=== PATIENT | female | born 1960 | race Caucasian/White ===

== ENCOUNTER 2021-04-26 11:51 | Emergency (ER) | payer BC ==
[2021-04-26 13:11] LABS: Absolute Lymphocytes (CBC) 1.3 K/uL (0.7-4.9); Hematocrit 44.8 % (36.0-45.0); Lymphocytes % 17.9 % (15.3-44.8); MPV 8.4 fL (7.6-11.3)
[2021-04-26] MEDS ORDERED: ONDANSETRON 4 MG/2 ML VIAL ONE (13:14)
[2021-04-26] MEDS ORDERED: NA CHLORIDE 0.9% 1,000 ML ONE (13:14)
[2021-04-26 13:28] LABS: Albumin 3.7 g/dL (3.4-5.0); Bilirubin Direct 0.1 mg/dL (0-0.2); Bilirubin Total 0.4 mg/dL (0.2-1.0); Potassium 3.9 mmol/L (3.5-5.1); Protein, Total 8.5 g/dL (6.4-8.2)
--- NOTE | 2021-04-26 14:29 | RAD REPORT ---
EXAM DESCRIPTION: CT - Abdomen Pelvis W Contrast - 04/26/2021 2:08 pm CLINICAL HISTORY: vomiting, diarrhea COMPARISON: No comparisons TECHNIQUE: Biphasic, helical CT imaging of the abdomen and pelvis was performed following 100 ml non -ionic IV contrast. No oral contrast administered. All CT scans are performed using dose optimization technique as appropriate and may include automated exposure control or mA/KV adjustment according to patient size. FINDINGS: No suspicious findings in the lung bases. Liver and spleen show no suspicious finding. No gallbladder or biliary tree abnormality. At the inter face with the third portion duodenum in the uncinate process there is approximately 15 mm rounded are a of heterogeneous tissue isodense to slightly hypodense relative to the pancreatic parenchyma. This could be a true pancreatic mass or possibly duodenal diverticulum. Origin cannot be clearly distingui shed. Follow-up outpatient contrast-enhanced MRI pancreatic protocol study would be recommended. No p erinephric stranding or edema. No other evidence for a pancreatic abnormality. Symmetric renal function is seen with no hydronephrosis or suspicious renal mass. Incidental note mad e of left-sided parapelvic cysts. No pyelonephritis or acute parenchymal process. No bladder abnormal ities. No adrenal abnormalities. Uterus and atrophic ovaries show no suspicious findings. No dilated bowel loops or bowel wall thickening. No free air, free fluid or inflammatory stranding. No hernia, mass or bulky lymphadenopathy. No suspicious bony findings. IMPRESSION: Contrast enhanced CT abdomen and pelvis showing no acute or emergent finding. Small mass at the pancreatic uncinate process -duodenum interface identifiable in could be true pancr eatic mass or duodenal diverticulum. A follow-up outpatient contrast MRI pancreatic protocol would be recommended.
[2021-04-26 14:33] LABS: SARS-COV-2 RT PCR POSITIVE (NEGATIVE)
[2021-04-26] MEDS ORDERED: DIAZEPAM 10 MG/2 ML INJ SYRINGE ONE (15:45)
--- NOTE | 2021-04-26 16:48 | RAD REPORT ---
EXAM DESCRIPTION: CT - Head Brain Wo Cont - 04/26/2021 4:32 pm CLINICAL HISTORY: DIZZINESS COMPARISON: Abdomen Pelvis W Contrast dated 04/26/2021 TECHNIQUE: Axial 5 mm thick images of the head were obtained without IV contrast. All CT scans are performed using dose optimization technique as appropriate and may include automated exposure control or mA/KV adjustment according to patient size. FINDINGS: No intracranial hemorrhage, mass, edema or shift of mid-line structures. No acute infarcti on changes seen. No abnormal extra-axial fluid collections. Ventricles are normal. Patient has no john surable atrophy or chronic ischemic change. The cavernous sinus and major venous sinuses are hyperden se due to contrast that was administered for a CT study of the abdomen and pelvis performed earlier. Mastoid air cells and visualized portions of the paranasal sinuses are clear. No acute bony findings. IMPRESSION: Negative non-contrast CT head examination.
--- NOTE | 2021-04-26 17:10 | RAD REPORT ---
EXAM DESCRIPTION: MRI - Brain Wo Cont - 04/26/2021 4:52 pm CLINICAL HISTORY: DIZZINESS COMPARISON: Head Brain Wo Cont dated 04/26/2021 TECHNIQUE: Sagittal T1-weighted images were obtained along with axial PD, heavily T2-weighted and T2 -FLAIR images. Axial DWI and ADC mapping sequences were also obtained along with coronal heavily T2-w eighted images. FINDINGS: No intracranial hemorrhage, mass or acute infarction. There is no edema or shift of midlin e structures. No extra-axial fluid collections. Cline-matter/white matter junction is preserved. Signa l voids are seen as a normal finding in the major intracranial vessels. No measurable atrophy or pattern carrier wayne ischemic change. Ventricles are normal. No sella or supra sella abnormality identified. No globe or orbital content abnormality seen. Mastoid air cells and paranasal sinuses are clear. IMPRESSION: Negative non-contrast MRI of the Brain for acute or significant finding.
[2021-04-26] MEDS ORDERED: MECLIZINE HCL 12.5 MG TAB ONE (17:29)
--- NOTE | 2021-04-26 19:53 | ER ---
Nurse's Notes [facility] Name: Roya Meier Age: 61 yrs Sex: Female : 1960 Arrival Date: 04/26/2021 Time: 11:56 Bed 26 Private MD: Diagnosis: Other peripheral vertigo;Vomiting;Diarrhea;Coronavirus infection, unspecified Presentation: 04/26 12:00 Chief complaint: Spouse and/or significant other states: "she started with a fever and jd3 headache a week ago and got worse to the point today where she has been throwing up and not able to eat or drink for 5 days. she was having some low blood pressure, we just got concerned.". Coronavirus screen: fatigue, fever, headache, muscle pain, nausea, Client presents with at least one sign or symptom that may indicate coronavirus-19. Standard/surgical mask placed on the client. Provider contacted for isolation considerations. Ebola Screen: No symptoms or risks identified at this time. Initial Sepsis Screen: Does the patient meet any 2 criteria? No. Patient's initial sepsis screen is negative. Does the patient have a suspected source of infection? No. Patient's initial sepsis screen is negative. Risk Assessment: Do you want to hurt yourself or someone else? Patient reports no desire to harm self or others. Onset of symptoms was April 26, 2021. 12:00 Method Of Arrival: Wheelchair jd3 12:00 Acuity: ARTIE 3 jd3 Historical: - Allergies: 12:02 No Known Allergies; jd3 - Home Meds: 12:02 None [Active]; jd3 - PMHx: 12:02 None; jd3 - PSHx: 12:02 None; jd3 - Immunization history:: Adult Immunizations up to date, Client reports having NOT received the Covid vaccine. Flu vaccine is not up to date. - Social history:: Smoking status: Patient denies any tobacco usage or history of. Screenin:09 Abuse screen: Denies threats or abuse. Denies injuries from another. Nutritional ab2 screening: No deficits noted. Tuberculosis screening: No symptoms or risk factors identified. Fall Risk None identified. Assessment: 12:08 General: Appears in no apparent distress. uncomfortable, Behavior is calm, cooperative, ab2 appropriate for age. Pain: Denies pain. Neuro: No deficits noted. Level of Consciousness is awake, alert, obeys commands, Oriented to person, place, time, situation, Appropriate for age Merchandising Specialist are equal bilaterally Moves all extremities. Gait is steady, Speech is normal, Facial symmetry appears normal. Cardiovascular: Denies chest pain, shortness of breath, Heart tones S1 S2 present Patient's skin is warm and dry. Respiratory: No deficits noted. Airway is patent Breath sounds are clear bilaterally. Denies cough, shortness of breath. GI: Abdomen is round non-distended, Bowel sounds present X 4 quads. Abdomen is tender to palpation X 4 quads. Reports lower abdominal pain, upper abdominal pain, diarrhea, nausea, vomiting. : No deficits noted. No signs and/or symptoms were reported regarding the genitourinary system. EENT: No deficits noted. No signs and/or symptoms were reported regarding the EENT system. Derm: Skin is clammy. Derm: Skin is pale. Musculoskeletal: No deficits noted. No signs and/or symptoms reported regarding the musculoskeletal system. 18:08 Reassessment: Patient ate part of a sandwich and applesauce with no vomiting. ab2 Vital Signs: 12:02 BP 120 / 80; Pulse 74; Resp 18 S; Temp 97.0(TE); Pulse Ox 100% on R/A; Weight 58.97 kg jd3 (R); Height 5 ft. 1 in. (154.94 cm) (R); Pain 10/10; 12:10 BP 133 / 88; Pulse 63; Resp 17; Pulse Ox 97% on R/A; ab2 13:18 BP 122 / 83; Pulse 67; Resp 16; Pulse Ox 100% on R/A; ab2 14:15 BP 141 / 91; Pulse 69; Resp 16; Pulse Ox 98% on R/A; ab2 15:15 BP 120 / 68; Pulse 69; Resp 16; Pulse Ox 98% on R/A; ab2 16:05 BP 134 / 84; Pulse 80; Resp 16; Pulse Ox 99% on R/A; Pain 3/10; ab2 17:26 BP 124 / 82; Pulse 75; Resp 16; Pulse Ox 100% on R/A; ab2 18:08 BP 129 / 94; Pulse 79; Resp 16; Pulse Ox 95% ; ab2 19:05 BP 135 / 89; Pulse 78; Resp 16; Pulse Ox 95% ; ab2 20:04 BP 126 / 81; Pulse 79; Resp 16; Pulse Ox 99% on R/A; ab2 12:02 Body Mass Index 24.56 (58.97 kg, 154.94 cm) [facility] ED Course: 11:56 Patient arrived in ED. ds1 12:01 Triage completed. jd3 12:03 Arm band placed on. jd3 12:05 Raf Zimmer is Primary Nurse. ab2 12:09 Patient has correct armband on for positive identification. Bed in low position. Call ab2 light in reach. Side rails up X2. Adult w/ patient. 12:09 No provider procedures requiring assistance completed. ab2 12:16 Edwin Sanchez PA is PHCP. [facility] 12:16 Mynor Meza MD is Attending Physician. jmm 13:05 Lipase Sent. ab2 13:05 Hepatic Function Sent. ab2 13:05 Basic Metabolic Panel Sent. ab2 13:05 COVID-19/FLU A+B (Document "Date of Onset" if Symptomatic) Sent. ab2 13:05 Inserted saline lock: 18 gauge in right antecubital area, using aseptic technique. ab2 14:08 CT Abd/Pelvis - IV Contrast Only In Process Unspecified. EDMS 15:47 Troponin High Sensitivity Sent. ab2 16:33 CT Head Brain wo Cont In Process Unspecified. EDMS 16:51 Brain Wo Cont MRI In Process Unspecified. EDMS 18:07 PHCP role handed off by Edwin Sanchez PA pm1 18:07 Shan Field NP is PHCP. pm1 19:53 Ezio Mazariegos MD is Referral Physician. pm1 19:53 Bruno Rodriguez MD is Referral Physician. pm1 20:05 IV discontinued, intact, bleeding controlled, No redness/swelling at site. Pressure ab2 dressing applied. Administered Medications: 13:15 Drug: NS 0.9% 1000 ml Route: IV; Rate: 1 bolus; Site: right antecubital; ab2 14:35 Follow up: Response: No adverse reaction; IV Status: Completed infusion ab2 13:15 Drug: Zofran (Ondansetron) 4 mg Route: IVP; Site: right antecubital; ab2 14:35 Follow up: Response: No adverse reaction ab2 15:46 Drug: Valium (diazepam) 2 mg Route: IVP; Site: right antecubital; ab2 16:06 Follow up: Response: No adverse reaction ab2 17:30 Drug: Meclizine 50 mg Route: PO; ab2 Outcome: 19:53 Discharge ordered by . pm1 20:05 Discharged to home via wheelchair, with significant other. ab2 20:05 Condition: good 20:05 Discharge instructions given to patient, family, Instructed on discharge instructions, follow up and referral plans. medication usage, Demonstrated understanding of instructions, follow-up care, medications, Prescriptions given X 2. 20:05 Patient left the ED. ab2 Signatures: Dispatcher [employer] EDMS Edwin Sanchez PA PA jmm Sanford, Demi ds1 Shan Field, FOOD SERVICE TEAM MEMBER FOOD SERVICE TEAM MEMBER pm1 Leonel Richmond RN RN Raf Casey ab2 Corrections: (The following items were deleted from the chart) 12:03 12:00 Chief complaint: Spouse and/or significant other states: "she started with a jd3 fever and headache a week ago and got worse to the point today where she has been throwing up and not able to eat or drink for 5 days." jd3
--- NOTE | 2021-04-26 19:54 | EDPHYS ---
Physician Documentation [facility] Name: Roya Meier Age: 61 yrs Sex: Female : 1960 Arrival Date: 04/26/2021 Time: 11:56 Bed 26 Private MD: ED Physician Mynor Meza HPI: 04/26 12:36 This 61 yrs old Female presents to ER via Wheelchair with complaints of Diarrhea, jmm Vomiting. 12:36 Onset: The symptoms/episode began/occurred acutely, 1 week(s) ago. Possible causes: jmm unknown. The symptoms are aggravated by nothing. The symptoms are alleviated by nothing. Associated signs and symptoms: Pertinent negatives: abdominal pain. This is a 61-year-old female with no known medical conditions the presents emerged part with complaints of nausea vomiting and diarrhea. Patient states she has been unable to keep anything down. Patient denies abdominal pain. Denies cough or congestion or shortness of breath.. Historical: - Allergies: 12:02 No Known Allergies; jd3 - Home Meds: 12:02 None [Active]; jd3 - PMHx: 12:02 None; jd3 - PSHx: 12:02 None; jd3 - Immunization history:: Adult Immunizations up to date, Client reports having NOT received the Covid vaccine. Flu vaccine is not up to date. - Social history:: Smoking status: Patient denies any tobacco usage or history of. ROS: 12:36 Cardiovascular: Negative for chest pain, palpitations, and edema. jmm 12:36 Constitutional: Positive for fatigue. Exam: 17:40 Head/Face: atraumatic. Eyes: EOMI, no conjunctival erythema appreciated ENT: Moist jmm Mucus Membranes Neck: Trachea midline, Supple Chest/axilla: Normal chest wall appearance and motion. Cardiovascular: Regular rate and rhythm. No edema appreciated Respiratory: Normal respirations, no respiratory distress appreciated Abdomen/GI: Non distended, soft Back: Normal ROM Skin: General appearance color normal MS/ Extremity: Moves all extremities, no obvious deformities appreciated, no edema noted to the lower extremities 17:40 Neuro: Awake and alert Psych: Behavior is normal, Mood is normal, Patient is cooperative and pleasant 17:40 Constitutional: The patient appears in no acute distress, alert, awake. 17:40 Abdomen/GI: Inspection: abdomen appears normal, Bowel sounds: normal, Palpation: abdomen is soft and non-tender, in all quadrants. Vital Signs: 12:02 BP 120 / 80; Pulse 74; Resp 18 S; Temp 97.0(TE); Pulse Ox 100% on R/A; Weight 58.97 kg jd3 (R); Height 5 ft. 1 in. (154.94 cm) (R); Pain 10/10; 12:10 BP 133 / 88; Pulse 63; Resp 17; Pulse Ox 97% on R/A; ab2 13:18 BP 122 / 83; Pulse 67; Resp 16; Pulse Ox 100% on R/A; ab2 14:15 BP 141 / 91; Pulse 69; Resp 16; Pulse Ox 98% on R/A; ab2 15:15 BP 120 / 68; Pulse 69; Resp 16; Pulse Ox 98% on R/A; ab2 16:05 BP 134 / 84; Pulse 80; Resp 16; Pulse Ox 99% on R/A; Pain 3/10; ab2 17:26 BP 124 / 82; Pulse 75; Resp 16; Pulse Ox 100% on R/A; ab2 18:08 BP 129 / 94; Pulse 79; Resp 16; Pulse Ox 95% ; ab2 19:05 BP 135 / 89; Pulse 78; Resp 16; Pulse Ox 95% ; ab2 20:04 BP 126 / 81; Pulse 79; Resp 16; Pulse Ox 99% on R/A; ab2 12:02 Body Mass Index 24.56 (58.97 kg, 154.94 cm) jd3 MDM: 12:36 Patient medically screened. [facility] 17:47 Data reviewed: vital signs, nurses notes. ED course: Patient upon reevaluation began to [facility] complain about dizziness. Patient stated approximately 2 to 3 days ago she developed dizziness in particular when changing position. MRI of brain and CT noncontrast were ordered. Both were negative for any acute findings. I did discuss CT abdomen findings with a possible pancreatic mass and the need for further evaluation with the family. After administration of Valium patient still complains of dizziness. Will administer meclizine to see if this alleviates some of the patient's symptoms.. 17:53 Transition of care: After a detail discussion of the patient's case, care is [facility] transferred to Shan Field NP. 19:52 Counseling: I had a detailed discussion with the patient and/or guardian regarding: the pm1 historical points, exam findings, and any diagnostic results supporting the discharge/admit diagnosis, lab results, radiology results, the need for outpatient follow up, a neurologist, to return to the emergency department if symptoms worsen or persist or if there are any questions or concerns that arise at home. 04/26 12:37 Order name: Basic Metabolic Panel; Complete Time: 13:31 [facility] 04/26 12:37 Order name: CBC with Diff; Complete Time: 13:26 [facility] 04/26 12:37 Order name: Hepatic Function; Complete Time: 13:31 [facility] 04/26 12:37 Order name: Lipase; Complete Time: 13:31 [facility] 04/26 12:37 Order name: COVID-19/FLU A+B (Document "Date of Onset" if Symptomatic); Complete Time: [facility] 14:35 04/26 15:31 Order name: Troponin High Sensitivity; Complete Time: 16:16 [facility] 04/26 12:37 Order name: IV Saline Lock; Complete Time: 13:05 [facility] 04/26 12:38 Order name: CT Abd/Pelvis - IV Contrast Only; Complete Time: 14:35 [facility] 04/26 15:31 Order name: CT Head Brain wo Cont; Complete Time: 16:57 [facility] 04/26 15:31 Order name: Brain Wo Cont MRI; Complete Time: 17:11 [facility] 04/26 12:37 Order name: Labs collected and sent; Complete Time: 13:05 [facility] Administered Medications: 13:15 Drug: NS 0.9% 1000 ml Route: IV; Rate: 1 bolus; Site: right antecubital; ab2 14:35 Follow up: Response: No adverse reaction; IV Status: Completed infusion ab2 13:15 Drug: Zofran (Ondansetron) 4 mg Route: IVP; Site: right antecubital; ab2 14:35 Follow up: Response: No adverse reaction ab2 15:46 Drug: Valium (diazepam) 2 mg Route: IVP; Site: right antecubital; ab2 16:06 Follow up: Response: No adverse reaction ab2 17:30 Drug: Meclizine 50 mg Route: PO; ab2 Disposition: 04/27 08:58 Co-signature as Attending Physician, Mynor Meza MD I agree with the assessment and kdr plan of care. Disposition Summary: 04/26/21 19:53 Discharge Ordered Location: Home pm1 Condition: Stable pm1 Problem: new pm1 Symptoms: have improved pm1 Diagnosis - Other peripheral vertigo pm1 - Vomiting pm1 - Diarrhea pm1 - Coronavirus infection, unspecified pm1 Followup: [facility] - With: - When: 2 - 3 days - Reason: Recheck today's complaints, Continuance of care, Re-evaluation by your physician Followup: jmm - With: - When: 2 - 3 days - Reason: Recheck today's complaints, Continuance of care, Re-evaluation by your physician Discharge Instructions: - Discharge Summary Sheet [facility] - Diarrhea, Adult [facility] - COVID-19 [facility] - Nausea and Vomiting, Adult [facility] Forms: - Medication Reconciliation Form pm1 - Thank You Letter pm1 - Antibiotic Education pm1 - Prescription Opioid Use pm1 Prescriptions: - ondansetron 4 mg Oral tablet,disintegrating - take 1 tablet by ORAL route every 4-6 hours; 20 tablet; Refills: 0, Product [facility] Selection Permitted - Meclizine 25 mg Oral Tablet - take 1 tablet by ORAL route every 8 hours As needed; 30 tablet; Refills: 0, [facility] Product Selection Permitted Signatures: Dispatcher [employer] Mynor Fierro MD MD kdr Mickail, Joel, PA PA m Shan Field, RECORDS ADMINISTRATOR RECORDS ADMINISTRATOR pm1 Leonel Richmond, RN RN jd3 Raf Zimmer
[2021-04-27 01:22] VITALS: TEMP 97
[2021-04-27 01:37] VITALS: BP 126/81; O2SAT 99
== END 2021-04-26 20:05 | disposition home or self-care (01) ==
LOC: ER 11:51
DX: U07.1 COVID-19 (principal); H81.399 Other peripheral vertigo, unspecified ear; R19.7 Diarrhea, unspecified
CPT/HCPCS: 85025; 80048; 36415; 80076; 84484; 83690; 0240U; 70450; 74177; 70551; Q9967; J3360; J7030; J2405; 96361; 96374; 96375; 99284; J8597